=== PATIENT | female | born 1985 | race Caucasian/White ===

== ENCOUNTER 2018-08-31 02:51 | Emergency (ER) | payer BC ==
[~2018-08-31] VITALS: Wt 50.9 kg
[2018-08-31 03:00] VITALS: BP 150/75; PULSE 97; RESP 18
[2018-08-31] MEDS ORDERED: MECLIZINE 12.5 MG TAB PO ONE (04:00)
[2018-08-31] MEDS ORDERED: MECL12.574 PO (04:26)
--- NOTE | 2018-08-31 04:34 | ERD ---
ER Documentation Chief Complaint Chief Complaint chills, body aches, vomiting x's 4 hours HPI 33-year-old female complaining of feeling dizzy and vomiting for the last several hours. Patient did describe dizziness is spinning sensation when she moves her head. She also had multiple episodes of vomiting due to that. Denies fever or chills. Denies abdominal pain or diarrhea. Denies headache. Denies one-sided weakness or numbness. Denies tinnitus. Denies cough or shortness of breath. ROS All systems reviewed and are negative except as per history of present illness. Medications Home Meds Active Scripts Meclizine Hcl* (Antivert*) 12.5 Mg Tab, 12.5 MG PO Q6H PRN for DIZZINESS, #20 TAB Prov:GALINDO ECHAVARRIA. [employer] 08/31/18 Allergies Allergies: Coded Allergies: No Known Allergy (Unverified , 08/31/18) PMhx/Soc Medical and Surgical Hx: pt denies Medical Hx, pt denies Surgical Hx History of Surgery: No Anesthesia Reaction: No Hx Neurological Disorder: No Hx Respiratory Disorders: No Hx Cardiac Disorders: No Hx Psychiatric Problems: No Hx Miscellaneous Medical Probl: No Hx Alcohol Use: No Hx Substance Use: No Hx Tobacco Use: No Smoking Status: Never smoker Physical Exam Vitals Vital Signs Date Temp Pulse Resp B/P (MAP) Pulse Ox O2 O2 Flow FiO2 Time Delivery Rate 08/31/18 97.6 97 18 150/75 100 03:00 (100) Physical Exam General: Well-developed, well-nourished, conscious and coherent, in no distress. Dry heaving noted in the exam room Skin: Warm and dry without rash, good texture and turgor Head: Normocephalic without evidence of trauma Eyes: Sclera and conjunctivae normal; pupils equal, round, and reactive to light; extraocular movements are intact. Horizontal nystagmus noted Ears: Canals are patent. Tympanic membranes are clear Chest: Normal AP diameter. Good expansion without retractions. Nontender. Lungs are clear to auscultate bilaterally with good tidal volume Heart: Regular rate and rhythm. No murmur, rub, or gallops heard Extremities: Full range of motion. Good strength bilaterally. No erythema, ecchymosis, or edema. Peripheral pulses are intact. Sensation intact Neuro: Alert and oriented 4; GCS 15. Cranial nerves II - XII intact. Motor sensory exam nonfocal. Moves all extremities. Deep tendon reflexes 2+ in all extremities. Speech clear. No pronator drift. Gait steady. Results 24 hrs Current Medications Medications Dose Sig/Mc Start Time Status Last (Trade) Ordered Route PRN Stop Time Admin Dose Reason Admin Meclizine 25 mg ONCE ONCE 08/31/18 DC 08/31/18 HCl PO 04:00 03:41 (Antivert) 08/31/18 04:01 Procedures/MDM I evaluated this patient with vertigo. Exam findings included: Head Impulse testing resulted in eyes that left the target and returned in a saccadic fashion Nystagmus testing resulted in horizontal nystagmus Test of Skew testing resulted in eyes that remain aligned Interpretation of these exam findings: A peripheral lesion is suspected, because all three components above were suggestive of a benign cause of the patients vertigo symptoms Likely patient has benign positional vertigo. Low suspicion for central causes of vertigo such as stroke, intracranial hemorrhage, vertebral artery dissection, acoutic neuroma. Patient given meclizine in the ED. Additional meclizine is prescribed for the patient. Patient also given instruction on home Judith maneuver. Even though patient's chief complaint was listed as flu symptoms by the triage nurse, patient did not report any flulike symptoms. I doubt influenza. Patient appears well, stable for discharge and outpatient management. Medical decision making shared with patient and family. Education provided to patient and family. Patient and family expressed understanding of the plan. Medications on discharge: Meclizine. Follow-up: Primary care provider in 2-3 days or return to ED if worse. Disclaimer: Inadvertent spelling and grammatical errors are likely due to EHR/dictation software use and do not reflect on the overall quality of patient care. Also, please note that the electronic time recorded on this note does not necessarily reflect the actual time of the patient encounter. Departure Diagnosis: Primary Impression: Vertigo Condition: Stable Patient Instructions: Inner Ear Problems: Causes of Dizziness (Vertigo) Referrals: COMMUNITY CLINICS YOU HAVE RECEIVED A MEDICAL SCREENING EXAM AND THE RESULTS INDICATE THAT YOU DO NOT HAVE A CONDITION THAT REQUIRES URGENT TREATMENT IN THE EMERGENCY DEPARTMENT. FURTHER EVALUATION AND TREATMENT OF YOUR CONDITION CAN WAIT UNTIL YOU ARE SEEN IN YOUR DOCTORS OFFICE WITHIN THE NEXT 1-2 DAYS. IT IS YOUR RESPONSIBILITY TO MAKE AN APPOINTMENT FOR FOLOW-UP CARE. IF YOU HAVE A PRIMARY DOCTOR --you should call your primary doctor and schedule an appointment IF YOU DO NOT HAVE A PRIMARY DOCTOR YOU CAN CALL OUR PHYSICIAN REFERRAL HOTLINE AT IF YOU CAN NOT AFFORD TO SEE A PHYSICIAN YOU CAN CHOSE FROM THE FOLLOWING [facility] CL[facility]ICS [facility] [address] [facility]. [facility] [address] [facility] [facility] [address] [facility] [facility] [address] [facility] [facility] [address] [facility] [facility]. [address] Additional Instructions: Call your primary care doctor TOMORROW for an appointment during the next 2-3 days.See the doctor sooner or return here if your condition worsens before your appointment time. GALINDO ECHAVARRIA NP Aug 31, 2018 04:34
== END 2018-08-31 04:45 | disposition home or self-care (01) ==
LOC: FTE 02:51
DX: R42 Dizziness and giddiness (principal); R40.2412 Glasgow coma scale score 13-15, at arrival to emergency department
CPT/HCPCS: 99282